=== PATIENT | male | born 1975 | race Caucasian/White ===

== ENCOUNTER 2016-11-21 14:32 | Emergency (ER) | payer MEDICARE, MEDICAID ==
[~2016-11-21] VITALS: Ht 185.4 cm; Wt 85.0 kg
[~2016-11-21 14:32] MED LIST: ACET-2708 PO; ASCO500C15 PO; DIPH50CA4 PO; DOCU250C75 PO; FENT1PAT TD; HYDR-519 PO; LORA-250 PO; NEPVIT PO; OMEP20CA4 PO; SEVE800T PO; SILVERDENE CREAM TOP
[2016-11-21] MEDS ORDERED: SODIUM CHLORIDE 0.9% 1,000 ML IV ONE (14:44)
[2016-11-21] MEDS ORDERED: NALOXONE HCL 0.4 MG/ML 1ML VIAL IV PRN (14:45)
[2016-11-21 15:23] LABS: BG BASE EXCESS -1.1 mmol/L (-2.0-2.0); BG CARBOXYHEMOGLOBIN 6.2 % (0.5-1.5); BG DEOXYHEMOGLOBIN 0.3 % (0.0-5.0); BG FRACTION INSPIRED OXYGEN 21; BG HCO3 ACT 20.4 mmol/L (22.0-26.0); BG OXYGEN SATURATION 99.7 % (92.0-98.5); BG OXYHEMOGLOBIN 93.5 % (94.0-97.0); BG PCO2 19.8 mmHg (35.0-45.0); BG PO2 135.2 mmHg (75.0-100.0); BG SAMPLE SITE RIGHT BRACHIAL; BG TOTAL HEMOGLOBIN 4.5 g/dL (12.0-18.0); BG VENT MODE ROOM AIR
[2016-11-21 15:25] LABS: MEAN CORPUSCULAR HEMOGLOBIN 30.7 pg (28.0-32.0); MEAN CORPUSCULAR HGB CONC 31.5 g/dL (31.0-37.0); MEAN CORPUSCULAR VOLUME 97.5 fL (80.0-94.0); MEAN PLATELET VOLUME 8.5 fl (7.4-10.4); PLATELET 347 x1000/uL (130-400); RED BLOOD CELL COUNT 1.45 mill/uL (4.7-6.1); RED CELL DISTRIBUTION WIDTH 20.3 % (11.6-14.6); WHITE BLOOD COUNT 21.2 x1000/uL (4.5-11.0)
[2016-11-21 15:30] LABS: DIFFERENTIAL COMMENT 1; INR 1.1; PARTIAL THROMBOPLASTIN TIME 21.8 sec (24.0-34.0); PROTHROMBIN TIME 11.4 sec
[2016-11-21 15:31] LABS: HEMATOCRIT. 14.1 % (42.0-52.0); HEMOGLOBIN. 4.5 g/dL (14.0-18.0)
[2016-11-21 15:33] LABS: AMMONIA 18 uMol/L (<32); INDEX HEMOLYSI 1 (1-3)
[2016-11-21 15:37] LABS: ALANINE AMINOTRANSFERASE 19 IU/L (13-61); ALBUMIN 2.8 g/dL (3.4-5.0); ANION GAP 24; CALCIUM 8.4 mg/dL (8.5-10.1); CARBON DIOXIDE 23 mEq/L (21-32); CHLORIDE 92 mEq/L (98-107); ETHANOL BLOOD < 10 mg/dL; INDEX HEMOLYSI 1 (1-3); INDEX ICTERIC 1 (1-4); INDEX LIPEMIC 1 (1-3); NT PRO B-TYPE NATRIURETIC PEP 3423 pg/mL (5-125); TROPONIN I 0.08 ng/mL (0.00-0.04); eGFR 19 mL/min (>60)
[2016-11-21 15:42] LABS: UREA NITROGEN BLOOD 89 mg/dL (7-21)
[2016-11-21] MEDS ORDERED: LORAZEPAM 2MG/ML CPJ IV ONE ×3 (15:45→17:00)
[2016-11-21 16:32] LABS: PLATELET ESTIMATE NORMAL
[2016-11-21 16:33] LABS: HYPOCHROMASIA 1+
[2016-11-21 16:34] LABS: ANISOCYTOSIS 2+
[2016-11-21] MEDS ORDERED: CEFTRIAXONE 2 G PREMIX 50 ML IV ONE (17:30)
[2016-11-21] MEDS ORDERED: VANCOMYCIN 1 G PREMIX 200 ML IV SCH (17:30)
[2016-11-21 19:04] VITALS: BP 112/65
[2016-11-21] MEDS ORDERED: MORPHINE SULFATE 4 MG/ML CPJ (NOT FOR IM USE) IV SCH (19:15)
[2016-11-21] MEDS ORDERED: CLONIDINE 0.1MG TABLET PO PRN (22:45)
[2016-11-21] MEDS ORDERED: ACETAMINOPHEN 325MG TABLET PO PRN (22:45)
[2016-11-21] MEDS ORDERED: SODIUM CHLORIDE 0.9% 1,000 ML IV SCH (22:45)
[2016-11-21] MEDS ORDERED: LORAZEPAM 2MG/ML CPJ IV PRN (22:45)
[2016-11-21] MEDS ORDERED: ENOXAPARIN 40MG/0.4ML SYR SUBCUT SCH (22:45)
[2016-11-21] MEDS ORDERED: DOCUSATE SODIUM 100MG CAPSULE PO PRN (22:45)
[2016-11-21] MEDS ORDERED: ONDANSETRON HCL 4MG/2ML VIAL IV PRN (22:45)
[2016-11-21] MEDS ORDERED: HYDROMORPHONE HCL/PF 2MG/ML CPJ IV PRN (22:45)
[2016-11-21] MEDS ORDERED: PIPERACILLIN/TAZ 3.375G PREMIX 50 ML IV SCH (22:45)
== END 2016-11-22 01:41 | disposition left against medical advice (07) ==
LOC: ER 14:55
DX: I12.0 Hypertensive chronic kidney disease with stage 5 chronic kidney disease or end stage renal disease (principal); N18.6 End stage renal disease; D63.1 Anemia in chronic kidney disease; D72.829 Elevated white blood cell count, unspecified; E87.4 Mixed disorder of acid-base balance; R09.02 Hypoxemia; R00.0 Tachycardia, unspecified; Z99.2 Dependence on renal dialysis
CPT/HCPCS: 36415; 36430; 36600; 70450; 71010; 80053; 82140; 82375; 82805; 83605; 83880; 84484; 85025; 85610; 85730; 86850; 86900; 86901; 86920; 87040; 93005; 96361; 96374; 96376; 99291; G0482; J0696; J2060; J2270; J3370; J7030